=== PATIENT | female | born 1985 | race Two or more races ===

== ENCOUNTER 2022-03-28 20:36 | Emergency (ER) | payer MEDICAID, OTHER ==
[2022-03-28 20:36] VITALS: BP 151/92
== END 2022-03-29 02:37 | disposition home or self-care (01) ==
LOC: ER 20:36
DX: S16.1XXA Strain of muscle, fascia and tendon at neck level, initial encounter (principal); M25.512 Pain in left shoulder; R41.82 Altered mental status, unspecified; V43.52XA Car driver injured in collision with other type car in traffic accident, initial encounter; Y93.89 Activity, other specified; Y92.488 Other paved roadways as the place of occurrence of the external cause; Y99.8 Other external cause status
CPT/HCPCS: 70450